=== PATIENT | female | born 1985 | race Caucasian/White ===

== ENCOUNTER 2025-01-27 22:11 | Emergency (ER) | payer BC, SELFPAY ==
[2025-01-27] MEDS: MOTRIN 600 MG PO (22:35)
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
[2025-01-28] MEDS: PERCOCET 5/325 1 TABLET PO (01:18)
== END 2025-01-28 01:29 | disposition home or self-care (01) ==
LOC: EMR 22:11
PROVIDERS: EMERGENCY PHYSICIAN Student in an Organized Health Care Education/Training Program; FAMILY PHYSICIAN Internal Medicine
DX: T24.111A Burn of first degree of right thigh, initial encounter (principal); T24.112A Burn of first degree of left thigh, initial encounter; X12.XXXA Contact with other hot fluids, initial encounter; R03.0 Elevated blood-pressure reading, without diagnosis of hypertension
CPT/HCPCS: 99283